=== PATIENT | male | born 1995 | race Hispanic/Latino ===

== ENCOUNTER 2020-02-18 18:47 | Emergency (ER) | payer SELFPAY | END 2020-02-18 20:14 | disposition home or self-care (01) | LOC: EDH 18:47 | DX: S01.511A Laceration without foreign body of lip, initial encounter (principal); Z72.0 Tobacco use; W20.8XXA Other cause of strike by thrown, projected or falling object, initial encounter; Y93.89 Activity, other specified; Y92.89 Other specified places as the place of occurrence of the external cause; Y99.8 Other external cause status | CPT/HCPCS: 99281 ==

== ENCOUNTER 2022-03-18 14:43 | Emergency (ER) | payer OTHER ==
[~2022-03-18] VITALS: Ht 162.6 cm; Wt 52.2 kg
[2022-03-18 15:06] VITALS: BP 122/77
[2022-03-18] MEDS ORDERED: IBUPROFEN 600 MG TABLET PO ONE (17:00)
[2022-03-18] MEDS ORDERED: CYCL10TA16 PO (18:08)
== END 2022-03-18 18:15 | disposition home or self-care (01) ==
LOC: EDH 14:43
DX: S16.1XXA Strain of muscle, fascia and tendon at neck level, initial encounter (principal); S29.012A Strain of muscle and tendon of back wall of thorax, initial encounter; V49.49XA Driver injured in collision with other motor vehicles in traffic accident, initial encounter; Y93.89 Activity, other specified; Y92.413 State road as the place of occurrence of the external cause; Y99.8 Other external cause status
CPT/HCPCS: 72040; 72072